=== PATIENT | female | born 1990 | race Caucasian/White ===

== ENCOUNTER 2017-04-17 10:23 | Inpatient (IN) | payer OTHER ==
[~2017-04-17] VITALS: Ht 154.9 cm; Wt 67.1 kg
[2017-04-17 13:39] LABS: HCT 33.4 % (37.0-47.0); HGB 10.9 g/dl (12.5-16.0); MCHC 32.6 g/dL (32.0-36.0); MCV 85.9 fL (78.0-100.0); MPV 11.1 fL (6.0-9.5); RBC 3.89 M/uL (4.20-5.40); WBC 9.5 K/uL (4.0-10.5)
[2017-04-17 14:05] LABS: INR 1.11 (0.9-1.2); PROTHROMBIN TIME 13.9 SECONDS (11.7-14.0)
[2017-04-18 06:30] LABS: HCT 24.2 % (37.0-47.0); MCH 28.6 pg (25.0-31.0); MCHC 33.1 g/dL (32.0-36.0); MCV 86.4 fL (78.0-100.0); MPV 10.8 fL (6.0-9.5); RBC 2.8 M/uL (4.20-5.40); RDW 12.5 % (11.5-14.0)
[2017-04-18 06:38] LABS: WBC 19.3 K/uL (4.0-10.5)
== END 2017-04-19 16:15 | disposition home or self-care (01) | DRG 765 ==
LOC: FOD 10:23 → FOB 10:23 → FOD 16:34 → FOB 16:35
PROVIDERS: ADMIT Obstetrics & Gynecology
PROC: 10D00Z1 Extraction of Products of Conception, Low, Open Approach (ICD-10-PCS; principal; 2017-04-17 18:00)
PROC: 3E0234Z Introduction of Serum, Toxoid and Vaccine into Muscle, Percutaneous Approach (ICD-10-PCS; 2017-04-18)
DX: O34.211 Maternal care for low transverse scar from previous cesarean delivery (principal); D62 Acute posthemorrhagic anemia; O35.0XX0 Maternal care for (suspected) central nervous system malformation in fetus, not applicable or unspecified; O36.0930 Maternal care for other rhesus isoimmunization, third trimester, not applicable or unspecified; O63.9 Long labor, unspecified; N85.8 Other specified noninflammatory disorders of uterus; Z3A.38 38 weeks gestation of pregnancy; Z37.0 Single live birth; G93.0 Cerebral cysts; O26.13 Low weight gain in pregnancy, third trimester; O99.02 Anemia complicating childbirth; D50.9 Iron deficiency anemia, unspecified
CPT/HCPCS: 36415; 81003; 85384; 85461; 85610; 85730; 86850; 86900; 86901; 88307; J0456; J0690; J1100; J1885; J2274; J2300; J2310; J2405; J2790; J2916; J3010

== ENCOUNTER 2020-11-24 16:15 | Inpatient (IN) | payer OTHER ==
[~2020-11-24 16:15] MED LIST: BENADRYL25 MG PO; KEFLEX250 MG PO; PEPCID AC20 MG PO; PERCOCET 5-3251 EACH PO; PREDNISONE 20MG20 MG PO
[2020-11-24 17:02] LABS: BILIRUBIN NEGATIVE (NEGATIVE); BLOOD NEGATIVE Ery/uL (NEGATIVE); CLARITY CLEAR (CLEAR); COLOR YELLOW (YELLOW); GLUCOSE (U) NORMAL (NORMAL); LEUKOCYTES 1+ Leu/uL (NEGATIVE); NITRITE NEGATIVE (NEGATIVE); PROTEIN NEGATIVE (NEGATIVE); UROBILINOGEN 0.2 mg/dL (0.2-1.0)
[2020-11-24 17:13] LABS: URINARY WBC RARE
[2020-11-24 18:33] LABS: HCT 30.9 % (37.0-47.0); HGB 10.3 g/dl (12.5-16.0); MCH 29.9 pg (25.0-31.0); MCHC 33.3 g/dL (32.0-36.0); MCV 89.8 fL (78.0-100.0); MPV 10.6 fL (6.0-9.5); RBC 3.44 M/uL (4.20-5.40); RDW 12.3 % (11.5-14.0); WBC 10.9 K/uL (4.0-10.5)
[2020-11-25 05:37] LABS: HCT 26.4 % (37.0-47.0); HGB 8.6 g/dl (12.5-16.0); MCH 29.8 pg (25.0-31.0); MCHC 32.6 g/dL (32.0-36.0); MCV 91.3 fL (78.0-100.0); MPV 10.3 fL (6.0-9.5); RBC 2.89 M/uL (4.20-5.40); RDW 12.1 % (11.5-14.0); WBC 14.4 K/uL (4.0-10.5)
[2020-11-26] MEDS ORDERED: FEOSOL325 MG PO (10:24)
[2020-11-26] MEDS ORDERED: PRENATAL FORMU1 EACH PO (10:24)
[2020-11-26] MEDS ORDERED: OXYCODONE-ACET1 EAC1 PO (10:24)
[2020-11-26] MEDS ORDERED: COLACE100 MG PO (10:24)
[2020-11-26] MEDS ORDERED: MOTRIN600 MG PO (10:24)
== END 2020-11-26 12:05 | disposition home or self-care (01) | DRG 787 ==
LOC: FOD 16:15 → FOB 16:16 → FOD 17:55 → FOB 17:56
PROVIDERS: ADMIT Obstetrics & Gynecology
PROC: 3E0334Z Introduction of Serum, Toxoid and Vaccine into Peripheral Vein, Percutaneous Approach (ICD-10-PCS; 2020-11-24)
PROC: 10D00Z1 Extraction of Products of Conception, Low, Open Approach (ICD-10-PCS; principal; 2020-11-24 20:00)
DX: O34.211 Maternal care for low transverse scar from previous cesarean delivery (principal); D62 Acute posthemorrhagic anemia; N85.8 Other specified noninflammatory disorders of uterus; O40.3XX0 Polyhydramnios, third trimester, not applicable or unspecified; O99.214 Obesity complicating childbirth; E66.9 Obesity, unspecified; O46.93 Antepartum hemorrhage, unspecified, third trimester; O24.429 Gestational diabetes mellitus in childbirth, unspecified control; Z3A.38 38 weeks gestation of pregnancy; Z37.0 Single live birth; O69.81X0 Labor and delivery complicated by cord around neck, without compression, not applicable or unspecified; O90.81 Anemia of the puerperium; Z20.828 Contact with and (suspected) exposure to other viral communicable diseases; O26.893 Other specified pregnancy related conditions, third trimester; Z67.41 Type O blood, Rh negative; O28.9 Unspecified abnormal findings on antenatal screening of mother
CPT/HCPCS: 36415; 81001; 82947; 85461; 86850; 86900; 86901; J0456; J0690; J1100; J1885; J2274; J2405; J2790; J2916; J7050; J7120; U0002

== ENCOUNTER 2022-03-22 15:46 | Inpatient (IN) | payer OTHER ==
[~2022-03-22] VITALS: Ht 154.9 cm; Wt 76.7 kg
[~2022-03-22 15:46] MED LIST changes: +COLACE100 MG PO; +FEOSOL325 MG PO; +MOTRIN600 MG PO; +OXYCODONE-ACET1 EAC1 PO; +PRENATAL FORMU1 EACH PO
[2022-03-22 16:50] LABS: BILIRUBIN NEGATIVE (NEGATIVE); BLOOD NEGATIVE Ery/uL (NEGATIVE); CLARITY CLEAR (CLEAR); COLOR YELLOW (YELLOW); GLUCOSE (U) NORMAL (NORMAL); LEUKOCYTES 3+ Leu/uL (NEGATIVE); NITRITE NEGATIVE (NEGATIVE); PROTEIN NEGATIVE (NEGATIVE); SPECIFIC GRAVITY 1.015 (1.001-1.030); UROBILINOGEN 0.2 mg/dL (0.2-1.0); pH 7.5 (5.0-9.0)
[2022-03-22 16:54] LABS: BACTERIA TRACE
[2022-03-22 16:55] LABS: MUCOUS TRACE; SQUAMOUS EPITHELIAL CELLS 20-50
[2022-03-22 19:20] LABS: HCT 35.3 % (37.0-47.0); HGB 12.3 g/dl (12.5-16.0); MCH 31.9 pg (25.0-31.0); MCHC 34.8 g/dL (32.0-36.0); MCV 91.7 fL (78.0-100.0); MPV 10.7 fL (6.0-9.5); RBC 3.85 M/uL (4.20-5.40); RDW 12.5 % (11.5-14.0); WBC 10.8 K/uL (4.0-10.5)
[2022-03-23 07:27] LABS: HCT 27.5 % (37.0-47.0); HGB 9.4 g/dl (12.5-16.0); MCHC 34.2 g/dL (32.0-36.0); MCV 93.5 fL (78.0-100.0); MPV 10.1 fL (6.0-9.5); RBC 2.94 M/uL (4.20-5.40); RDW 12.3 % (11.5-14.0); WBC 12.8 K/uL (4.0-10.5)
== END 2022-03-24 13:10 | disposition home or self-care (01) | DRG 787 ==
LOC: FIS 15:46 → FOB 16:44 → FIS 20:08 → FOB 20:09
PROVIDERS: ADMIT Obstetrics & Gynecology
PROC: 10D00Z1 Extraction of Products of Conception, Low, Open Approach (ICD-10-PCS; principal; 2022-03-22 19:52)
DX: O34.211 Maternal care for low transverse scar from previous cesarean delivery (principal); D62 Acute posthemorrhagic anemia; Z37.0 Single live birth; Z3A.37 37 weeks gestation of pregnancy; Z20.822 Contact with and (suspected) exposure to COVID-19; O40.3XX0 Polyhydramnios, third trimester, not applicable or unspecified; O36.5930 Maternal care for other known or suspected poor fetal growth, third trimester, not applicable or unspecified; O90.81 Anemia of the puerperium; Z86.16 Personal history of COVID-19
CPT/HCPCS: 36415; 81001; 84112; 86850; 86900; 86901; J0456; J0690; J1885; J2274; J2405; J2916; J3010; J7050; J7120; U0002

== ENCOUNTER 2022-05-11 11:31 | Emergency (ER) | payer OTHER | END 2022-05-11 13:32 | disposition home or self-care (01) | LOC: FER 11:31 | DX: S93.402A Sprain of unspecified ligament of left ankle, initial encounter (principal); S80.211A Abrasion, right knee, initial encounter; W10.9XXA Fall (on) (from) unspecified stairs and steps, initial encounter; Y92.009 Unspecified place in unspecified non-institutional (private) residence as the place of occurrence of the external cause; Z28.310 Unvaccinated for COVID-19 | CPT/HCPCS: 73610 ==